=== PATIENT | male | born 2000 | race Caucasian/White ===

== ENCOUNTER 2019-08-11 11:34 | Emergency (ER) | payer BC ==
--- NOTE | 2019-08-11 12:15 | ER ---
Nurse's Notes [facility] Name: Case Vargas Age: 19 yrs Sex: Male : 2000 Arrival Date: 08/11/2019 Time: 11:38 Bed 25 Private MD: Diagnosis: Hordeolum externum left upper eyelid Presentation: 08/10 11:47 Chief complaint: Patient states: Stye on L top eyelid since 2 days ago. Coronavirus ca1 screen: Proceed with normal triage. Patient denies a cough. Patient denies shortness of breath or difficulty breathing. Patient denies measured and/or subjective temperature greater than 100.4F prior to today's visit. Patient denies travel on a cruise ship or to a country the [facility] currently lists as an affected area. Patient denies contact with known and/or suspected case of COVID-19. Ebola Screen: Patient negative for fever greater than or equal to 101.5 degrees Fahrenheit, and additional compatible Ebola Virus Disease symptoms Patient denies exposure to infectious person. Patient denies travel to an Ebola-affected area in the 21 days before illness onset. No symptoms or risks identified at this time. Initial Sepsis Screen: Does the patient meet any 2 criteria? No. Patient's initial sepsis screen is negative. Does the patient have a suspected source of infection? No. Patient's initial sepsis screen is negative. Risk Assessment: Do you want to hurt yourself or someone else? Patient reports no desire to harm self or others. Onset of symptoms was August 11, 2019. 11:47 Method Of Arrival: Ambulatory ca1 11:47 Acuity: ALEX 5 ca1 Historical: - Allergies: 11:50 No Known Allergies; ca1 - Home Meds: 11:50 None [Active]; ca1 - PMHx: 11:50 None; ca1 - PSHx: 11:50 None; ca1 - Immunization history:: Adult Immunizations up to date. - Social history:: Smoking status: Patient denies any tobacco usage or history of. Screenin:05 Abuse screen: Denies threats or abuse. Denies injuries from another. Nutritional iw screening: No deficits noted. Tuberculosis screening: No symptoms or risk factors identified. Fall Risk None identified. Assessment: 12:04 General: Appears in no apparent distress. Behavior is calm, cooperative. Pain: iw Complains of pain in left eye. Neuro: Level of Consciousness is awake, alert, obeys commands, Oriented to person, place, time, situation, Moves all extremities. Full function. Cardiovascular: Patient's skin is warm and dry. Respiratory: Respiratory effort is even, unlabored. EENT: Lid(s) w/ stye noted inner aspect of conjunctiva of left eye and left inner canthus. Derm: Skin is intact, is healthy with good turgor. Musculoskeletal: Range of motion: intact in all extremities. Vital Signs: 11:47 BP 116 / 64; Pulse 71; Resp 15 S; Temp 97.5(TE); Pulse Ox 98% on R/A; Weight 85.28 kg ca1 (R); Height 5 ft. 9 in. (175.26 cm) (R); Pain 0/10; 11:47 Body Mass Index 27.76 (85.28 kg, 175.26 cm) ca1 ED Course: 11:38 Patient arrived in ED. ag5 11:49 Triage completed. ca1 11:50 Arm band placed on right wrist. ca1 11:59 Suzan Keyes FNP-C is PHCP. kb 11:59 Altagracia Rosenbaum MD is Attending Physician. kb 12:04 Luba Vargas, RN is Primary Nurse. iw 12:04 Patient has correct armband on for positive identification. iw 12:47 No provider procedures requiring assistance completed. Patient did not have IV access iw during this emergency room visit. Administered Medications: No medications were administered Outcome: 12:15 Discharge ordered by MD. kb 12:47 Discharged to home ambulatory. iw 12:47 Condition: good 12:47 Discharge instructions given to patient, Instructed on discharge instructions, follow up and referral plans. Demonstrated understanding of instructions, follow-up care. 12:48 Patient left the ED. iw Signatures: Suzan Keyes FNP-C FNP-Luba No, RN RN iw Marilee Camp RN RN ca1 SangeetaKen ag5
--- NOTE | 2019-08-11 12:15 | EDPHYS ---
Physician Documentation [facility] Name: Case Vargas Age: 19 yrs Sex: Male : 2000 Arrival Date: 08/11/2019 Time: 11:38 Bed 25 Private MD: ED Physician Altagracia Rosenbaum HPI: 08/10 12:21 This 19 yrs old Male presents to ER via Ambulatory with complaints of Eye Problem. kb 12:21 The patient is experiencing redness, The patient sustained Unknown. to the left eye, kb caused by an unknown mechanism. Onset: The symptoms/episode began/occurred 2 day(s) ago. Duration: the symptoms are continuous. Aggravated by nothing. Alleviated by nothing. Associated signs and symptoms: Pertinent positives: None. Patient does not utilize any form of vision correction. Severity of symptoms: At their worst the symptoms were mild in the emergency department the symptoms are unchanged. The patient has not experienced similar symptoms in the past. The patient has not recently seen a physician. Historical: - Allergies: 11:50 No Known Allergies; ca1 - Home Meds: 11:50 None [Active]; ca1 - PMHx: 11:50 None; ca1 - PSHx: 11:50 None; ca1 - Immunization history:: Adult Immunizations up to date. - Social history:: Smoking status: Patient denies any tobacco usage or history of. ROS: 12:20 Constitutional: Negative for fever, chills, and weight loss, Cardiovascular: Negative kb for chest pain, palpitations, and edema, Respiratory: Negative for shortness of breath, cough, wheezing, and pleuritic chest pain, Abdomen/GI: Negative for abdominal pain, nausea, vomiting, diarrhea, and constipation, Back: Negative for injury and pain, MS/Extremity: Negative for injury and deformity, Skin: Negative for injury, rash, and discoloration, Neuro: Negative for headache, weakness, numbness, tingling, and seizure. 12:20 Eyes: Positive for itching, redness, swelling, of the left upper eyelid. Exam: 12:22 Constitutional: This is a well developed, well nourished patient who is awake, alert, kb and in no acute distress. Head/Face: Normocephalic, atraumatic. Chest/axilla: Normal chest wall appearance and motion. Nontender with no deformity. No lesions are appreciated. Cardiovascular: Regular rate and rhythm with a normal S1 and S2. No gallops, murmurs, or rubs. Normal PMI, no JVD. No pulse deficits. Respiratory: Lungs have equal breath sounds bilaterally, clear to auscultation and percussion. No rales, rhonchi or wheezes noted. No increased work of breathing, no retractions or nasal flaring. Abdomen/GI: Soft, non-tender, with normal bowel sounds. No distension or tympany. No guarding or rebound. No evidence of tenderness throughout. Skin: Warm, dry with normal turgor. Normal color with no rashes, no lesions, and no evidence of cellulitis. MS/ Extremity: Pulses equal, no cyanosis. Neurovascular intact. Full, normal range of motion. Neuro: Awake and alert, GCS 15, oriented to person, place, time, and situation. Cranial nerves II-XII grossly intact. Motor strength 5/5 in all extremities. Sensory grossly intact. Cerebellar exam normal. Normal gait. 12:22 Eyes: Lids and lashes: stye, on the left lid. Vital Signs: 11:47 BP 116 / 64; Pulse 71; Resp 15 S; Temp 97.5(TE); Pulse Ox 98% on R/A; Weight 85.28 kg ca1 (R); Height 5 ft. 9 in. (175.26 cm) (R); Pain 0/10; 11:47 Body Mass Index 27.76 (85.28 kg, 175.26 cm) ca1 MDM: 11:59 Patient medically screened. kb 12:20 Data reviewed: vital signs. Data interpreted: Pulse oximetry: on room air is 98 %. kb Interpretation: normal. Counseling: I had a detailed discussion with the patient and/or guardian regarding: the historical points, exam findings, and any diagnostic results supporting the discharge/admit diagnosis, the need for outpatient follow up, an opthalmologist, to return to the emergency department if symptoms worsen or persist or if there are any questions or concerns that arise at home. Administered Medications: No medications were administered Disposition: 18:49 Co-signature as Attending Physician, Altagracia Rosenbaum MD. ma2 Disposition: 08/11/19 12:15 Discharged to Home. Impression: Hordeolum externum left upper eyelid. - Condition is Stable. - Discharge Instructions: Stye. - Medication Reconciliation Form, Thank You Letter, Antibiotic Education, Prescription Opioid Use, Work release form form. - Follow up: Emergency Department; When: As needed; Reason: Worsening of condition. Follow up: Private Physician; When: 2 - 3 days; Reason: Recheck today's complaints, Continuance of care, Re-evaluation by your physician. Signatures: Suzan Keyes, LUPILLO-C LARRY CAR OPERATOR-Luba No RN RN Altagracia Rosenbaum MD MD ma2 Marilee Camp RN RN ca1 Corrections: (The following items were deleted from the chart) 12:48 12:15 08/11/2019 12:15 Discharged to Home. Impression: Hordeolum externum left upper iw eyelid. Condition is Stable. Discharge Instructions: Stye. Forms are Medication Reconciliation Form, Thank You Letter, Antibiotic Education, Prescription Opioid Use. Follow up: Emergency Department; When: As needed; Reason: Worsening of condition. Follow up: Private Physician; When: 2 - 3 days; Reason: Recheck today's complaints, Continuance of care, Re-evaluation by your physician. kb
[2019-08-11 12:54] VITALS: BP 116/64; TEMP 97.5; O2SAT 98
== END 2019-08-11 12:48 | disposition home or self-care (01) ==
LOC: ER 11:34
DX: H00.014 Hordeolum externum left upper eyelid (principal)
CPT/HCPCS: 99281

== ENCOUNTER 2020-12-25 19:40 | Emergency (ER) | payer BC, SELFPAY ==
--- NOTE | 2020-12-25 21:18 | RAD REPORT ---
EXAM DESCRIPTION: RAD - Chest Pa And Lat (2 Views) - 12/25/2020 9:13 pm CLINICAL HISTORY: CHEST PAIN Chest pain. COMPARISON: No comparisons FINDINGS: The lungs are clear. The heart is normal in size. No displaced fractures. IMPRESSION: No acute or concerning finding suspected.
[2020-12-25 22:42] LABS: Absolute Lymphocytes (CBC) 2.4 K/uL (0.7-4.9); Basophils % 0.6 % (0-1.3); Hematocrit 37.9 % (39.6-49.0); Lymphocytes % 29.1 % (15.3-44.8); MPV 8.6 fL (7.6-11.3); RBC Red Blood Cell Count 4.24 M/uL (4.33-5.43)
[2020-12-25 22:56] LABS: ALT/SGPT 22 U/L (12-78); AST/SGOT 13 U/L (15-37); Alkaline Phosphatase 60 U/L (45-117); BUN Blood Urea Nitrogen 11 mg/dL (7-18); Bicarbonate 29 mmol/L (21-32); Bilirubin Direct 0.3 mg/dL (0-0.2); Bilirubin Total 1.5 mg/dL (0.2-1.0); Glucose Level 87 mg/dL (74-106); Magnesium 2.2 mg/dL (1.8-2.4); NT PRO-BNP 20 pg/mL (<125); Potassium 3.7 mmol/L (3.5-5.1); Protein, Total 7.3 g/dL (6.4-8.2); Sodium Level 139 mmol/L (136-145); Troponin (Emerg Dept Use Only) < 0.02 ng/mL (0.0-0.045)
[2020-12-25 23:17] LABS: Barbiturates NEGATIVE (NEGATIVE); Benzodiazepines NEGATIVE (NEGATIVE); Cocaine NEGATIVE (NEGATIVE); METHAMPHETAM NEGATIVE (NEGATIVE); Methadone NEGATIVE (NEGATIVE); Opiates NEGATIVE (NEGATIVE); Phencyclidine NEGATIVE (NEGATIVE); THC Cannibis NEGATIVE (NEGATIVE)
[2020-12-25 23:28] LABS: Protime INR 0.98
--- NOTE | 2020-12-26 00:37 | EDPHYS ---
Physician Documentation [facility] Name: Case Vargas Age: 20 yrs Sex: Male : 2000 Arrival Date: 12/25/2020 Time: 19:41 Bed 17 Private MD: ED Physician Kevin Mcbride HPI: 12/25 21:00 This 20 yrs old Male presents to ER via Ambulatory with complaints of Chest cp Pain. 21:00 The patient or guardian reports chest pain that is located primarily in the anterior cp chest wall, left. The pain does not radiate. The chest pain is described as aching. Historical: - Allergies: 20:10 No Known Allergies; df1 - Home Meds: 20:10 lithium carbonate 300 mg Oral tab 1 tab 3 times per day [Active]; df1 - PMHx: 20:11 Bipolar disorder; df1 - PSHx: 20:11 None; df1 - Immunization history:: Adult Immunizations up to date, Client reports receiving the 2nd dose of the Covid vaccine. - Social history:: Smoking status: Patient denies any tobacco usage or history of. ROS: 21:01 Constitutional: Negative for body aches, chills, fever, poor PO intake. cp 21:01 Cardiovascular: Positive for chest pain, of the left side of chest. 21:01 Respiratory: Negative for cough, shortness of breath, wheezing. 21:01 Abdomen/GI: Negative for abdominal pain, nausea, vomiting, and diarrhea. 12/26 00:38 Eyes: Negative for injury, pain, redness, and discharge. pkl Exam: 12/25 21:01 Head/Face: Normocephalic, atraumatic. cp Constitutional: The patient appears in no acute distress, alert, awake, comfortable, non-diaphoretic, non-toxic, well developed, well nourished. Chest/axilla: Inspection: normal, Palpation: is normal, no crepitus, no tenderness. Cardiovascular: Rate: normal, Rhythm: regular. ECG was reviewed by the Attending Physician. Respiratory: the patient does not display signs of respiratory distress, Respirations: normal, no use of accessory muscles, no retractions, labored breathing, is not present, Breath sounds: are clear throughout, no decreased breath sounds, no stridor, no wheezing. Abdomen/GI: Exam negative for discomfort, distension, guarding, Inspection: abdomen appears normal. Vital Signs: 20:08 BP 137 / 81; Pulse 83; Resp 18; Temp 98.5; Pulse Ox 100% on R/A; Weight 81.19 kg; df1 Height 5 ft. 9 in. (175.26 cm); Pain 4/10; 21:42 BP 116 / 72; Pulse 95; Resp 20; cs9 22:04 BP 131 / 75; Pulse 72; Resp 20; Temp 98.6(O); Pulse Ox 100% on R/A; Pain 2/10; kc4 23:11 BP 124 / 75; Pulse 68; Resp 20; Temp 98.6(O); Pulse Ox 100% on R/A; Pain 0/10; kc4 12/26 00:50 BP 121 / 76; Pulse 70; Resp 18; Pulse Ox 98% on R/A; Pain 0/10; kc4 12/25 20:08 Body Mass Index 26.43 (81.19 kg, 175.26 cm) df1 MDM: 12/25 21:37 Patient medically screened. pkl 12/26 00:33 Data reviewed: vital signs, nurses notes, lab test result(s), EKG, radiologic studies, pkl plain films. ED course: Patient feeling better. Discussed lab, EKG and CXR results with patient. Advised to follow up with PCP in 2 to 3 days. To return if necessary. Patient understood instructions. 12/25 21:03 Order name: Basic Metabolic Panel; Complete Time: 23:07 cp 12/25 21:03 Order name: CBC with Diff; Complete Time: 22:52 cp 12/25 21:03 Order name: LFT's; Complete Time: 23:07 cp 12/25 21:03 Order name: Magnesium; Complete Time: 23:07 cp 12/25 21:03 Order name: NT PRO-BNP; Complete Time: 23:07 cp 12/25 20:37 Order name: XRAY Chest Pa And Lat (2 Views); Complete Time: 21:39 df1 12/25 20:57 Order name: EKG - Nurse/Tech; Complete Time: 20:57 df1 12/25 21:03 Order name: Troponin (emerg Dept Use Only); Complete Time: 23:07 cp 12/25 21:40 Order name: D-Dimer; Complete Time: 23:55 pkl 12/25 21:40 Order name: UDS; Complete Time: 23:19 pkl 12/25 21:45 Order name: [place]; Complete Time: 00:23 pkl 12/25 22:30 Order name: Protime (+INR); Complete Time: 23:55 EDMS 12/25 21:03 Order name: Cardiac monitoring; Complete Time: 23:11 cp 12/25 21:03 Order name: IV Saline Lock; Complete Time: 23:11 cp 12/25 21:03 Order name: Labs collected and sent; Complete Time: 23:11 cp 12/25 21:03 Order name: O2 Per Protocol; Complete Time: 23:11 cp 12/25 21:03 Order name: O2 Sat Monitoring; Complete Time: 23:11 cp EC/27 21:01 Rate is 78 beats/min. Rhythm is regular. OK interval is normal. QRS interval is normal. cp QT interval is normal. T waves are Inverted in lead aVR. Interpreted by me. Reviewed by me. Administered Medications: 12/26 00:25 Drug: GI Cocktail without - (Maalox Suspension 30 ml, Lidocaine Liquid 2 % 15 kc4 ml) Route: PO; 00:52 Follow up: Response: No adverse reaction kc4 Disposition: 00:33 Co-signature as Attending Physician, Kevin Mcbride MD. pkl Disposition Summary: 12/26/20 00:36 Discharge Ordered Location: Home pkl Problem: new pkl Symptoms: have improved pkl Condition: Stable pkl Diagnosis - Chest pain pkl Followup: pkl - With: Private Physician - When: 2 - 3 days - Reason: Re-evaluation by your physician Forms: - Medication Reconciliation Form pkl - Thank You Letter pkl - Antibiotic Education pkl - Prescription Opioid Use pkl Signatures: Dispatcher [employer] EDKevin Woods MD MD pkl Chon Arellano PA PA cp Chuman, Kourtney kc4 Siri Gallardo df1 Corrections: (The following items were deleted from the chart) 12/25 22:29 21:04 PROTIME (+INR)+COAG.LAB.BRZ ordered. EDMS EDMS
--- NOTE | 2020-12-26 00:37 | ER ---
Nurse's Notes [facility] Name: Case Vargas Age: 20 yrs Sex: Male : 2000 Arrival Date: 12/25/2020 Time: 19:41 Bed 17 Private MD: Diagnosis: Chest pain Presentation: 12/25 20:08 Chief complaint: Patient states: chest pain since 1000 today mid sternal. Pain is df1 reproducible with pressure and movement. Coronavirus screen: Vaccine status: Patient reports receiving the 2nd dose of the covid vaccine. At this time, the client does not indicate any symptoms associated with coronavirus-19. Ebola Screen: Patient negative for fever greater than or equal to 101.5 degrees Fahrenheit, and additional compatible Ebola Virus Disease symptoms Patient denies exposure to infectious person. Patient denies travel to an Ebola-affected area in the 21 days before illness onset. Initial Sepsis Screen: Does the patient meet any 2 criteria? No. Patient's initial sepsis screen is negative. Does the patient have a suspected source of infection? No. Patient's initial sepsis screen is negative. Risk Assessment: Do you want to hurt yourself or someone else? Patient reports no desire to harm self or others. Onset of symptoms was December 25, 2020 at 10:00. 20:08 Method Of Arrival: Ambulatory df1 20:08 Acuity: ALEX 3 df1 20:11 Note Pt states chest pain since this morning. Also states 30 days late for [place] df1 level. Triage Assessment: 12/26 00:50 General: Appears in no apparent distress. well groomed, Behavior is calm, cooperative, kc4 appropriate for age. Pain: Denies pain. Historical: - Allergies: 12/25 20:10 No Known Allergies; df1 - Home Meds: 20:10 lithium carbonate 300 mg Oral tab 1 tab 3 times per day [Active]; df1 - PMHx: 20:11 Bipolar disorder; df1 - PSHx: 20:11 None; df1 - Immunization history:: Adult Immunizations up to date, Client reports receiving the 2nd dose of the Covid vaccine. - Social history:: Smoking status: Patient denies any tobacco usage or history of. Screenin:09 Abuse screen: Denies threats or abuse. Denies injuries from another. Nutritional kc4 screening: No deficits noted. On no prescribed diet Difficulty chewing/swallowing? No. Tuberculosis screening: No symptoms or risk factors identified. Never had TB. Possible symptoms: None Risk factors: None. Fall Risk None identified. No fall in past 12 months (0 pts). No secondary diagnosis (0 pts). IV access (20 points). Ambulatory Aid- None/Bed Rest/Nurse Assist (0 pts). Gait- Normal/Bed Rest/Wheelchair (0 pts) Mental Status- Oriented to own ability (0 pts). [place] Fall Scale indicates No Risk (0-24 pts). Assessment: 22:39 Also complains of no other symptoms. Pain: Complains of pain in chest Pain does not kc4 radiate. Pain currently is 5 out of 10 on a pain scale. at worst was 9 out of 10 on a pain scale. level that patient reports is acceptable is 2 out of 10 on a pain scale. Quality of pain is described as sharp, Pain began gradually, Is intermittent, Alleviated by medications. Cardiovascular: Reports chest pain, Denies diaphoresis, fatigue, lightheadedness, nausea, palpitations, shortness of breath, syncope, vomiting, Heart tones present Capillary refill < 3 seconds Pulses are all present. Rhythm is regular. Respiratory: No deficits noted. GI: No deficits noted. No signs and/or symptoms were reported involving the gastrointestinal system. : No deficits noted. No signs and/or symptoms were reported regarding the genitourinary system. EENT: No deficits noted. No signs and/or symptoms were reported regarding the EENT system. Derm: No deficits noted. No signs and/or symptoms reported regarding the dermatologic system. Vital Signs: 20:08 BP 137 / 81; Pulse 83; Resp 18; Temp 98.5; Pulse Ox 100% on R/A; Weight 81.19 kg; df1 Height 5 ft. 9 in. (175.26 cm); Pain 4/10; 21:42 BP 116 / 72; Pulse 95; Resp 20; cs9 22:04 BP 131 / 75; Pulse 72; Resp 20; Temp 98.6(O); Pulse Ox 100% on R/A; Pain 2/10; kc4 23:11 BP 124 / 75; Pulse 68; Resp 20; Temp 98.6(O); Pulse Ox 100% on R/A; Pain 0/10; kc4 12/26 00:50 BP 121 / 76; Pulse 70; Resp 18; Pulse Ox 98% on R/A; Pain 0/10; kc4 12/25 20:08 Body Mass Index 26.43 (81.19 kg, 175.26 cm) df1 Vitals: 12/25 22:50 Cardiac Rhythm Assessment Regular Sinus rhythm. kc4 ED Course: 19:41 Patient arrived in ED. cf2 20:10 Triage completed. df1 21:13 XRAY Chest Pa And Lat (2 Views) In Process Unspecified. EDMS 21:37 Kevin Mcbride MD is Attending Physician. pkl 22:05 Inserted saline lock: 18 gauge in right antecubital area, using aseptic technique. kc4 Blood collected. 22:33 Rosanna Hough is Primary Nurse. kc4 22:33 Patient has correct armband on for positive identification. Placed in gown. Bed in low kc4 position. Call light in reach. Side rails up X 1. hall monitor on. Pulse ox on. NIBP on. 22:33 No provider procedures requiring assistance completed. kc4 22:41 Protime (+INR) Sent. kc4 22:41 [place] Sent. kc4 22:41 D-Dimer Sent. kc4 22:41 UDS Sent. kc4 23:09 No apparent distress. Resting quietly. kc4 23:10 UDS Sent. kc4 12/26 00:50 IV discontinued, intact, bleeding controlled, No redness/swelling at site. Pressure kc4 dressing applied. Patient maintains SpO2 saturation greater than 95% on room air. 00:52 Arm band placed on right wrist. kc4 Administered Medications: 00:25 Drug: GI Cocktail without - (Maalox Suspension 30 ml, Lidocaine Liquid 2 % 15 kc4 ml) Route: PO; 00:52 Follow up: Response: No adverse reaction kc4 Output: 12/25 22:50 Urine: 500ml (Voided); Total: 500ml. kc4 Outcome: 12/26 00:36 Discharge ordered by . pkl 00:51 Discharged to home ambulatory. kc4 00:51 Condition: stable 00:51 Discharge instructions given to patient, Instructed on discharge instructions, follow up and referral plans. Demonstrated understanding of instructions, follow-up care, medications. 00:52 Patient left the ED. kc4 Signatures: Dispatcher [employer] EDAZ Kevin Mcbride MD MD pkl Alessia Pérez cf2 Rosanna Hough kc4 Siri Gallardo df1 Bertin, Natalie cs9
[2020-12-26] MEDS ORDERED: MAGNES/ALUMIN/SIMET 30ML UCUP ONE (00:42)
[2020-12-26] MEDS ORDERED: LIDOCAINE VISCOUS 2% SOLN 15 ML UDC ONE (00:42)
[2020-12-26 01:21] VITALS: TEMP 98.6
[2020-12-26 01:24] VITALS: BP 121/76; O2SAT 98
--- NOTE | 2020-12-28 14:25 | EKG ---
Test Date: 2020-12-25 Test Time: 20:53:35 [place]: MEASUREMENT RESULTS: Intervals: Rate: 78 KS: 144 QRSD: 92 QT: 372 QTc: 424 Faith: P: 69 KS: 144 QRS: 73 T: 48 INTERPRETIVE STATEMENTS: Normal sinus rhythm with sinus arrhythmia Normal ECG No previous ECG available for comparison Electronically Signed On 12-28-20 14:22:07 CDT by Jax Curtis
== END 2020-12-26 00:52 | disposition home or self-care (01) ==
LOC: ER 19:40
DX: R07.89 Other chest pain (principal); F31.9 Bipolar disorder, unspecified
CPT/HCPCS: 36415; 71046; 80048; 80076; 80178; 80307; 83735; 83880; 84484; 85025; 85379; 85610; 93005; 99285

== ENCOUNTER 2022-02-01 13:57 | Emergency (ER) | payer OTHER ==
--- OUTSIDE RECORDS SUMMARY | 2022-02-01 14:02 | XMS REPORT | Continuity of Care Document ---
:2000 Author Organization [facility] t Address [address] [place] [address] [address]. [address] [place] [address] Care Team Providers Name Role Phone Pcp, Patient Does Not Have A Primary Care Physician [id number] ILIA GRIGGS Attending Clinician Unavailable Ilia Griggs MD Attending Clinician Doctor Unassigned, [place] Attending Clinician Unavailable JONATAN DEAN Attending Clinician Unavailable PEREZ NASSAR Attending Clinician Unavailable JOHN SUN Attending Clinician Unavailable Payers Payer Name Policy Type Policy Number Effective Date Expiration Date S [facility] [id number] 2020 00:00:00 Problems Condition Condition Condition Status Onset Resolution Last Treating Co mments Source Name Details Category Date Date Treatment Clinician Date No known No known Disease Unive rs active active ity of problems problems [facility] Allergies, Adverse Reactions, Alerts Allergy Allergy Status Severity Reaction(s) Onset Inactive Treating Comm ents Source Name Type Date Date Clinician NO KNOWN Drug Active Univers ALLERGIE Class ity of S [facility] Social History Social Habit Start Date Stop Date Quantity Comments Source History of Current smoker University of tobacco use [facility] Exposure to 2021-12-27 2022-01-06 Not sure University of SARS-CoV-2 00:00:00 13:38:00 [facility] [place] Tobacco use and 2022-01-06 2022-01-06 Smokeless tobacco Un iversity of exposure 00:00:00 00:00:00 non-user [facility] Tobacco Comment 2022-01-06 2022-01-06 vape Universit y of 00:00:00 00:00:00 [facility] Sex Ass[birth year] At [birth year] Universit y of 00:00:00 00:00:00 [facility] Smoking Status Start Date Stop Date Source Ex-smoker 2022-01-06 00:00:00 2022-01-06 00:00:00 [facility] Medications Ordered Filled Start Stop Current Ordering Indication Dosage Frequency Signature Comments Components Source Medication Medication Date Date Medication? Clinician (SIG) Name Name lithium 2021-03 Yes TAKE 3 Univers carbonate 0-10 CAPSULES ity of 300 mg 00:00: BY MOUTH [place] capsule 00 EVERY DAY Medical WITH MEALS [facility] lithium 2021-03 Yes TAKE 3 Univers carbonate 0-10 CAPSULES ity of 300 mg 00:00: BY MOUTH [place] capsule 00 EVERY DAY Medical WITH MEALS Branch lithium 2021-03 Yes TAKE 3 Univers carbonate 0-10 CAPSULES ity of 300 mg 00:00: BY MOUTH [place] capsule 00 EVERY DAY Medical WITH MEALS Branch albuterol Yes [id number] 2{puff} Inhale 2 Univers 90 8-07 Puffs ity of mcg/actuati 00:00: every 6 [place] as on inhaler 00 (six) Medical hours as Branch needed for Wheezing, Shortness of Breath or Chest tightness. albuterol Yes [id number] 2{puff} Inhale 2 Univers 90 8-07 Puffs ity of mcg/actuati 00:00: every 6 [place] as on inhaler 00 (six) Medical hours as Branch needed for Wheezing, Shortness of Breath or Chest tightness. albuterol Yes [id number] 2{puff} Inhale 2 Univers 90 8-07 Puffs ity of mcg/actuati 00:00: every 6 [place] as on inhaler 00 (six) Medical hours as Branch needed for Wheezing, Shortness of Breath or Chest tightness. albuterol Yes [id number] 2{puff} Inhale 2 Univers 90 8-07 Puffs ity of mcg/actuati 00:00: every 6 [place] as on inhaler 00 (six) Medical hours as Branch needed for Wheezing, Shortness of Breath or Chest tightness. Vital Signs Vital Name Observation Time Observation Value Comments Source Systolic blood 2022-01-06 19:39:00 115 mm[Hg] Univer sity of pressure [facility] Diastolic blood 2022-01-06 19:39:00 66 mm[Hg] Unive rsity of pressure [facility] Heart rate 2022-01-06 19:39:00 71 /min [facility] Body temperature 2022-01-06 19:39:00 36.89 Soraya Univ ersity of [facility] Body height 2022-01-06 19:39:00 175.3 cm [facility] Body weight 2022-01-06 19:39:00 82.101 kg [facility] BMI 2022-01-06 19:39:00 26.73 kg/m2 [facility] Oxygen saturation in 2022-01-06 19:39:00 98 /min [facility] Arterial blood by [facility] Pulse oximetry [place] Procedures Procedure Date / Time Performed Performing Clinician Sour e CONSENT/REFUSAL FOR 2022-01-06 19:30:11 Doctor Unassaurea, Marianela Un [facility] DIAGNOSIS AND Name [facility] TREATMENT Encounters Start End Encounter Admission Attending Care Care Encounter Source Date/Time Date/Time Type Type Clinicians Facility Department ID 2022-01-06 2022-01-06 Office Anson [facility] [id number] Univers 13:15:00 13:45:00 Visit [facility] [id number] it y of [place] [facility] [id number] Riaz as CENTER - [id number] Med ical [facility] 204 Branch 2022-01-06 2022-01-06 Outpatient R ANSON [facility] [id number] Univers 13:15:00 13:15:00 ILIA nelson [facility] 2022-01-06 2022-01-06 Orders Doctor ROSALES [id number] Univers 00:00:00 00:00:00 Only UnassGRACE villar [id number] ity of [place] [facility] [id number] Riaz as [id number] [facility] 009 Branch 2020-10-05 2020-10-05 Outpatient R JERMAINE [facility] [id number] Univers 19:00:00 19:00:00 JONATAN henao f [facility] 2020-09-08 2020-09-08 [facility] [id number] Univers 16:40:00 16:40:00 PEREZ toy [facility] 2019-10-03 2019-10-03 Outpatient R [facility] [id number] Univers 15:20:00 15:20:00 [facility] 2019-09-12 2019-09-12 [facility] [id number] Univers 14:20:00 14:20:00 JOHN [facility] Results This patient has no known results.
[2022-02-01 14:32] LABS: Urine Blood Negative (Negative); Urine Glucose Negative (Negative); Urine Protein Negative (Negative); Urine Specific Gravity 1.025 (1.005-1.030); Urine pH 5.5 (5.0-7.0)
[2022-02-01 14:41] LABS: Absolute Lymphocytes (CBC) 2.3 K/uL (0.7-4.9); Hematocrit 40.5 % (39.6-49.0); Lymphocytes % 27.9 % (15.3-44.8); MCV 87.3 fL (80-100); MPV 8.4 fL (7.6-11.3); RBC Red Blood Cell Count 4.64 M/uL (4.33-5.43)
[2022-02-01 14:58] LABS: Bilirubin Total 1.1 mg/dL (0.2-1.0); Protein, Total 7.6 g/dL (6.4-8.2)
--- NOTE | 2022-02-01 16:14 | RAD REPORT ---
EXAM DESCRIPTION: CT - Abdomen Pelvis W Contrast - 02/01/2022 3:57 pm CLINICAL HISTORY: abdominal pain, bloody stools COMPARISON: No comparisons TECHNIQUE: Biphasic, helical CT imaging of the abdomen and pelvis was performed following 100 ml non -ionic IV contrast. Oral contrast: No. All CT scans are performed using dose optimization technique as appropriate and may include automated exposure control or mA/KV adjustment according to patient size. FINDINGS: No suspicious findings in the lung bases. The liver, spleen, and pancreas show no suspicious findings. Gallbladder and biliary tree are also wi thout suspicious finding. Symmetric renal function is seen with no hydronephrosis or suspicious renal mass. No pyelonephritis o r acute parenchymal process. No bladder abnormalities. No adrenal abnormalities. No stomach or small bowel abnormality. No appendicitis findings seen. A few scattered small mesenteri c lymph nodes are present. From cecum through sigmoid colon there is no wall thickening or edema evid ent. Left-sided colon is mostly decompressed. Cho of the rectum are mildly prominent but difficult to evaluate in the absence of any intraluminal content. Mild mucosal level inflammatory bowel process cannot be excluded. No free air, free fluid or inflammatory stranding. No hernia, mass or bulky lymphadenopathy. No suspicious bony findings. IMPRESSION: Contrast enhanced CT abdomen and pelvis showing no acute or emergent finding. A few small mesenteric nonspecific lymph nodes are seen. No bulky lymphadenopathy or mass. Left side colon is mostly decompressed. A mucosal level inflammatory process could be occult in this CT examination.
--- NOTE | 2022-02-01 16:26 | ER ---
Nurse's Notes [facility] Name: Case Vargas Age: 21 yrs Sex: Male : 2000 Arrival Date: 02/01/2022 Time: 14:03 Bed 23 Private MD: Diagnosis: Abdominal pain, unspecified Presentation: 02/01 14:15 Chief complaint: Patient states: Blood/mucus in stool X 2 days. 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 Reports recent strep - been on amoxicillin. Denies abdominal pain. Discomfort eating or drinking. Coronavirus screen: At this time, the client does not indicate any symptoms associated with coronavirus-19. Ebola Screen: No symptoms or risks identified at this time. Initial Sepsis Screen: Does the patient meet any 2 criteria? No. Patient's initial sepsis screen is negative. Does the patient have a suspected source of infection? No. Patient's initial sepsis screen is negative. Risk Assessment: Do you want to hurt yourself or someone else? Patient reports no desire to harm self or others. Onset of symptoms was February 01, 2022. 14:15 Method Of Arrival: Ambulatory ld1 14:15 Acuity: ALEX 3 ld1 Triage Assessment: 14:17 General: Appears in no apparent distress. comfortable, Behavior is calm, cooperative, ld1 appropriate for age. Pain: Denies pain. EENT: No signs and/or symptoms were reported regarding the EENT system. Neuro: Level of Consciousness is awake, alert, obeys commands, Oriented to person, place, time, situation. Cardiovascular: Capillary refill < 3 seconds Patient's skin is warm and dry. Respiratory: Airway is patent Respiratory effort is even, unlabored, Respiratory pattern is regular, symmetrical. GI: Abdomen is flat, non-distended, Reports diarrhea, nausea, vomiting. : No signs and/or symptoms were reported regarding the genitourinary system. Derm: No signs and/or symptoms reported regarding the dermatologic system. Musculoskeletal: No signs and/or symptoms reported regarding the musculoskeletal system. Historical: - Allergies: 14:15 No Known Allergies; ld1 - PMHx: 14:15 Bipolar disorder; ld1 - PSHx: 14:15 None; ld1 - Immunization history:: Adult Immunizations up to date, Client reports receiving the 2nd dose of the Covid vaccine. - Social history:: Smoking status: Patient denies any tobacco usage or history of. Patient/guardian denies using alcohol. Screenin:27 Abuse screen: Denies threats or abuse. Denies injuries from another. Nutritional hb screening: No deficits noted. Tuberculosis screening: No symptoms or risk factors identified. Fall Risk None identified. Assessment: 14:27 General: See triage assessment. hb 15:32 Reassessment: Patient appears in no apparent distress at this time. Patient and/or hb family updated on plan of care and expected duration. Pain level reassessed. Patient is alert, oriented x 3, equal unlabored respirations, skin warm/dry/pink. 16:39 Reassessment: Patient appears in no apparent distress at this time. Patient and/or hb family updated on plan of care and expected duration. Pain level reassessed. Patient is alert, oriented x 3, equal unlabored respirations, skin warm/dry/pink. Vital Signs: 14:15 BP 134 / 69; Pulse 85; Resp 18; Temp 98.6(TE); Pulse Ox 100% on R/A; Weight 83.91 kg; ld1 Height 5 ft. 9 in. (175.26 cm); Pain 0/10; 16:39 BP 124 / 76; Pulse 82; Resp 15; Pulse Ox 99% on R/A; hb 14:15 Body Mass Index 27.32 (83.91 kg, 175.26 cm) ld1 ED Course: 14:03 Patient arrived in ED. rg4 14:09 [facility] 14:09 Chon Pabon MD is Attending Physician. [facility] 14:17 Triage completed. ld1 14:17 Arm band placed on right wrist. ld1 14:25 Inserted saline lock: 20 gauge in right antecubital area, using aseptic technique. ld1 Blood collected. 14:27 Nano Gardner, RN is Primary Nurse. hb 14:27 Patient has correct armband on for positive identification. hb 15:59 CT Abd/Pelvis - IV Contrast Only In Process Unspecified. EDMS 16:39 No provider procedures requiring assistance completed. IV discontinued, intact, hb bleeding controlled, No redness/swelling at site. Administered Medications: No medications were administered Medication: 14:28 VIS not applicable for this client. hb Outcome: 16:26 Discharge ordered by MD. paris 16:39 Discharged to home ambulatory. 16:39 Condition: stable 16:39 Discharge instructions given to patient, Instructed on discharge instructions, follow up and referral plans. medication usage, Demonstrated understanding of instructions, follow-up care, medications. 16:39 Patient left the ED. hb Signatures: Dispatcher [employer] EDMS Beto Davalos PA PA jmm Baxter, Heather, RN RN Rosalba Lazo rg4 Clara Leon RN RN ld1
--- NOTE | 2022-02-01 16:26 | EDPHYS ---
Physician Documentation [facility] Name: Case Vargas Age: 21 yrs Sex: Male : 2000 Arrival Date: 02/01/2022 Time: 14:03 Bed 23 Private MD: ZELALEM Physician Chon Pabon HPI: 02/01 14:19 This 21 yrs old Male presents to ER via Ambulatory with complaints of Mucus In Stool. jmm 14:19 The patient presents with abdominal pain. Onset: The symptoms/episode began/occurred jmm gradually. The symptoms do not radiate. This is a 21-year-old male with history of bipolar that presents emerged part with complaints of mild abdominal cramping. Patient noticed some mucus in his stool was concerned that there may be bleeding. Denies fever but states that he recently recovered from a strep infection. Denies vomiting.. Historical: - Allergies: 14:15 No Known Allergies; ld1 - PMHx: 14:15 Bipolar disorder; ld1 - PSHx: 14:15 None; ld1 - Immunization history:: Adult Immunizations up to date, Client reports receiving the 2nd dose of the Covid vaccine. - Social history:: Smoking status: Patient denies any tobacco usage or history of. Patient/guardian denies using alcohol. ROS: 14:19 Constitutional: Negative for fever, chills, and weight loss, Cardiovascular: Negative jmm for chest pain, palpitations, and edema, Respiratory: Negative for shortness of breath, cough, wheezing, and pleuritic chest pain. 14:19 Abdomen/GI: Positive for abdominal pain. 14:19 All other systems are negative. Exam: 14:19 Constitutional: This is a well developed, well nourished patient who is awake, alert, jmm and in no acute distress. Head/Face: atraumatic. Eyes: EOMI, no conjunctival erythema appreciated ENT: Moist Mucus Membranes Neck: Trachea midline, Supple Chest/axilla: Normal chest wall appearance and motion. Cardiovascular: Regular rate and rhythm. No edema appreciated Respiratory: Normal respirations, no respiratory distress appreciated Abdomen/GI: Non distended Back: Normal ROM Skin: General appearance color normal MS/ Extremity: Moves all extremities, no obvious deformities appreciated, no edema noted to the lower extremities Neuro: Awake and alert Psych: Behavior is normal, Mood is normal, Patient is cooperative and pleasant Vital Signs: 14:15 BP 134 / 69; Pulse 85; Resp 18; Temp 98.6(TE); Pulse Ox 100% on R/A; Weight 83.91 kg; ld1 Height 5 ft. 9 in. (175.26 cm); Pain 0/10; 16:39 BP 124 / 76; Pulse 82; Resp 15; Pulse Ox 99% on R/A; hb 14:15 Body Mass Index 27.32 (83.91 kg, 175.26 cm) ld1 MDM: 14:26 Patient medically screened. [facility] 16:25 Data reviewed: vital signs, nurses notes. Counseling: I had a detailed discussion with raina the patient and/or guardian regarding: the historical points, exam findings, and any diagnostic results supporting the discharge/admit diagnosis, lab results, radiology results, the need for outpatient follow up, to return to the emergency department if symptoms worsen or persist or if there are any questions or concerns that arise at home. 02/01 14:19 Order name: CBC with Diff; Complete Time: 14:45 ld1 02/01 14:19 Order name: CMP; Complete Time: 14:59 ld1 02/01 14:19 Order name: Lipase; Complete Time: 14:59 ld1 02/01 14:19 Order name: IV Saline Lock; Complete Time: 14:25 ld1 02/01 14:27 Order name: CT Abd/Pelvis - IV Contrast Only; Complete Time: 16:16 [facility] 02/01 14:33 Order name: Urine Dipstick-Ancillary; Complete Time: 14:39 EDCA 02/01 14:19 Order name: Labs collected and sent; Complete Time: 14:25 ld1 02/01 14:19 Order name: Urine Dipstick-Ancillary (obtain specimen); Complete Time: 14:30 ld1 Administered Medications: No medications were administered Disposition Summary: 02/01/22 16:26 Discharge Ordered Location: Home [facility] Condition: Stable [facility] Diagnosis - Abdominal pain, unspecified stefanie Followup: raina - With: Private Physician - When: 2 - 3 days - Reason: Recheck today's complaints, Continuance of care, Re-evaluation by your physician Discharge Instructions: - Discharge Summary Sheet raina - Abdominal Pain, Adult stefanie Forms: - Medication Reconciliation Form raina - Thank You Letter jmm - Antibiotic Education jmm - Prescription Opioid Use jmm Signatures: Dispatcher [employer] Beto Dinh PA PA jmm Dibbern, Lauren, RN RN ld1
[2022-02-01 17:02] VITALS: TEMP 98.6
[2022-02-01 17:12] VITALS: BP 124/76; O2SAT 99
== END 2022-02-01 16:39 | disposition home or self-care (01) ==
LOC: ER 13:57
DX: R10.9 Unspecified abdominal pain (principal)
CPT/HCPCS: 85025; 36415; 81003; 83690; 80053; 74177; 99283; Q9967

== ENCOUNTER 2022-12-15 22:49 | Emergency (ER) | payer OTHER, SELFPAY ==
--- OUTSIDE RECORDS SUMMARY | 2022-12-15 22:52 | XMS REPORT | Continuity of Care Document ---
:2000 Author Organization [facility] t Address [address] [place] [address] [place] [id number] Care Team Providers Name Role Phone Pcp, Patient Does Not Have A Primary Care Physician +[id number] Mk Attending Clinician Unavailable Ghazala Harris NP Attending Clinician Ilia Griggs MD Attending Clinician ILIA GRIGGS Attending Clinician Unavailable LORENA EDMONDSON Attending Clinician Unavailable LORENA EDMONDSON Attending Clinician Unavailable Chetan Huber Attending Clinician Doctor Unassigned, [place] Attending Clinician Unavailable 2, [facility] Attending Clinician Unavailable CHETAN MCCARTY Attending Clinician Unavailable Pob, [facility] Main Attending Clinician Unavailable GHAZALA HARRIS Attending Clinician Unavailable JONATAN DEAN Attending Clinician Unavailable PEREZ NASSAR Attending Clinician Unavailable JOHN SUN Attending Clinician Unavailable Mk Admitting Clinician Unavailable Payers Payer Name Policy Type Policy Number Effective Date Expiration Date S ource Problems Condition Condition Condition Status Onset Resolution Last Treating Co mments Source Name Details Category Date Date Treatment Clinician Date No known No known Disease Unive rs active active ity of problems problems [facility] [place] Allergies, Adverse Reactions, Alerts Allergy Allergy Status Severity Reaction(s) Onset Inactive Treating Comm ents Source Name Type Date Date Clinician NO KNOWN Drug Active Univers ALLERGIE Class ity of S [facility] Social History Social Habit Start Date Stop Date Quantity Comments Source Gender identity Universit y of [facility] Sexual orientation Univer sity of [facility] History of tobacco Current smoker Un iversity of use [facility] Exposure to 2022 2022-03-09 Not sure University SARS-CoV-2 (event) 00:00:00 13:34:00 [facility] History of Social 2022-02-06 2022-02-06 Univers ity of function 00:00:00 00:00:00 [facility] Tobacco use and 2020-09-08 2020-09-08 Smokeless Universit y of exposure 00:00:00 00:00:00 tobacco non-user [facility] dical [place] Tobacco Comment 2020-09-08 2020-09-08 vape Universit y of 00:00:00 00:00:00 [facility] [place] Sex Assigned At [birth year] Universit y of 00:00:00 00:00:00 [facility] [place] Smoking Status Start Date Stop Date Source Tobacco smoking [facility] xa consumption unknown Medical Bran ch Ex-smoker 2020-09-08 00:00:00 2020-09-08 [facility] [place] 00:00:[address] [facility] Medications Ordered Filled Start Stop Current Ordering Indication Dosage Frequency Signature Comments Components Source Medication Medication Date Date Medication? Clinician (SIG) Name Name metroNIDAZO 2021-03- No [id number] 500mg Take 1 Univers LE (FLAGYL) 04-12 tablet by it y of 500 mg 00:00: 05:59 mouth [place] tablet 00 :00 every 12 Medical (twelve) Branch hours for 3 days. metroNIDAZO 2021-03- No [id number] 500mg Take 1 Univers LE (FLAGYL) 04-12 tablet by it y of 500 mg 00:00: 05:59 mouth [place] tablet 00 :00 every 12 Medical (twelve) Branch hours for 3 days. metroNIDAZO 2021-03- No [id number] 500mg Take 1 Univers LE (FLAGYL) 04-12 tablet by it y of 500 mg 00:00: 05:59 mouth [place] tablet 00 :00 every 12 Medical (twelve) Branch hours for 3 days. amoxicillin 2021-03- No [id number] 1{tbl} Take 1 Univers -clavulanat 04-09 tablet by it y of e 875-125 00:00: 00:00 mouth in [place] mg per 00 :00 the Medical tablet morning Branch and 1 tablet in the evening. amoxicillin 2021-03- No [id number] 1{tbl} Take 1 Univers -clavulanat 04-09 tablet by it y of e 875-125 00:00: 00:00 mouth in [place] mg per 00 :00 the Medical tablet morning Branch and 1 tablet in the evening. amoxicillin 2021-03- No TAKE 1 Uni vers -clavulanat 03-19 TABLET BY it y of e 875-125 00:00: 00:00 MOUTH [place] mg per 00 :00 TWICE Medical tablet DAILY FOR Branch 10 DAYS amoxicillin 2021-03- No TAKE 1 Uni vers -clavulanat 03-19 TABLET BY it y of e 875-125 00:00: 00:00 MOUTH [place] mg per 00 :00 TWICE Medical tablet DAILY FOR Branch 10 DAYS lithium 2021-03 Yes TAKE 3 Univers carbonate [...] DAY Medical WITH MEALS Branch albuterol Yes [id number] 2{puff} Inhale 2 Univers 90 8-07 Puffs ity of mcg/actuati 00:00: every 6 [place] on inhaler 00 (six) Medical hours as Branch needed for Wheezing, Shortness of Breath or Chest tightness. albuterol Yes [id number] 2{puff} Inhale 2 Univers 90 8-07 Puffs ity of mcg/actuati 00:00: every 6 [place] on inhaler 00 (six) Medical hours as Branch needed for Wheezing, Shortness of Breath or Chest tightness. albuterol Yes [id number] 2{puff} Inhale 2 Univers 90 8-07 Puffs ity of mcg/actuati 00:00: every 6 [place] on inhaler 00 (six) Medical hours as Branch needed for Wheezing, Shortness of Breath or Chest tightness. albuterol Yes [id number] 2{puff} Inhale 2 [facility] 90 8-07 Puffs ity of mcg/actuati 00:00: every 6 [place] on inhaler 00 (six) Medical hours as Branch needed for Wheezing, Shortness of Breath or Chest tightness. albuterol 2021- No [id number] 2{puff} Inhale 2 [facility] 90 8-07 12-09 Puffs ity of mcg/actuati 00:00: 00:00 [place] 6 [place] inhaler 00 :00 (six) Medical hours as Branch needed for Wheezing, Shortness of Breath or Chest tightness. albuterol 2021- No [id number] 2{puff} Inhale 2 [place] [address] 8-07 12-09 Puffs ity of mcg/actuati 00:00: 00:00 [place] 6 [place] inhaler 00 :00 (six) Medical hours as Branch needed for Wheezing, Shortness of Breath or Chest tightness. albuterol 2021- No [id number] 2{puff} Inhale 2 [place] [address] 8-07 12-09 Puffs ity of mcg/actuati 00:00: 00:00 every 6 [place] inhaler 00 :00 (six) Medical hours as Branch needed for Wheezing, Shortness of Breath or Chest tightness. Klonopin 2 Klonopin 2 No 1 BID Klonopin 2 [place] mg tablet mg tablet mg tablet Family Take 1 Take 1 Take 1 Practic tablet tablet tablet e twice a day twice a day twice a by oral by oral day by route as route as oral route needed. needed. as needed. lithium lithium No 1 TID lithium [place] e carbonate carbonate carbonate Family 300 mg 300 mg 300 mg Practic tablet Take tablet Take tablet e 1 tablet 3 1 tablet 3 Take 1 times a day times a day tablet 3 by oral by oral times a route. route. day by oral route. Zoloft 100 Zoloft 100 No Zoloft 100 [place] mg tablet mg tablet mg tablet Family 1/2 tab PO 1/2 tab PO 1/2 tab PO Practic QHS x 1 QHS x 1 QHS x 1 e week, then week, then week, then 1 full tab 1 full tab 1 full tab PO QHS PO QHS PO QHS clonazepam clonazepam No 1 BID clonazepam [place] 2 mg 2 mg 2 mg Family disintegrat disintegrat disintegra Practic ing tablet ing tablet ting e Place 1 Place [address] 1 twice a day twice a day tablet by by twice a translingua translingua day by l route. l route. translingu al route. Vital Signs Vital Name Observation Time Observation Value Comments Source Height 2022-11-13 00:00:00 69 [in_i] [facility] BP Systolic 2022-11-13 00:00:00 121 mm[Hg] [facility] Body Weight 2022-11-13 00:00:00 174 [lb_av] [facility] BMI (Body Mass 2022-11-13 00:00:00 25.7 kg/m2 [facility] Family Index) Practice BP Diastolic 2022-11-13 00:00:00 69 mm[Hg] [facility] Systolic blood 2022-03-09 19:57:00 117 mm[Hg] Univer sity of [facility] Diastolic blood 2022-03-09 19:57:00 76 mm[Hg] Unive rsity of [facility] Heart rate 2022-03-09 19:57:00 65 /min Universi [facility] Body temperature 2022-03-09 19:57:00 36.67 Soraya [facility] [place] [facility] Respiratory rate 2022-03-09 19:57:00 18 /min [facility] Body height 2022-03-09 19:57:00 175.3 cm [facility] Body weight 2022-03-09 19:57:00 83.825 kg Universi [facility] BMI 2022-03-09 19:57:00 27.29 kg/m2 [facility] Oxygen saturation in 2022-03-09 19:57:00 97 /min [facility] Arterial blood by [facility] Pulse oximetry Branch Diastolic blood 2022-02-06 20:56:00 76 mm[Hg] Unive rsity of pressure [facility] Heart rate 2022-02-06 20:56:00 73 /min Universi [facility] Respiratory rate 2022-02-06 20:56:00 18 /min [place] [facility] [place] [facility] Body height 2022-02-06 20:56:00 175.3 cm [facility]i [facility] [place] [facility] Body weight 2022-02-06 20:56:00 82.101 kg Universi ty [facility] [place] [facility] BMI 2022-02-06 20:56:00 26.73 kg/m2 [facility]i [facility] [place] [facility] Oxygen saturation in 2022-02-06 20:56:00 99 /min University of Arterial blood by [facility] Pulse oximetry Branch Systolic blood 2022-02-06 20:56:00 118 mm[Hg] Univer sity of pressure [facility] [place] Systolic blood 2022-01-06 19:39:00 115 mm[Hg] Univer sity of pressure [facility] Branch Diastolic blood 2022-01-06 19:39:00 66 mm[Hg] Unive rsity of [facility] Heart rate 2022-01-06 19:39:00 71 /min Universi ty of [place] Medical [place] Body temperature 2022-01-06 19:39:00 36.89 Soraya Univ ersity of [facility] Body height 2022-01-06 19:39:00 175.3 cm Universi ty [facility] [place] [facility] [place] Body weight 2022-01-06 19:39:00 82.101 kg [facility]i [facility] [place] [facility] BMI 2022-01-06 19:39:00 26.73 kg/m2 [facility]i [facility] [place] [facility] Oxygen saturation in 2022-01-06 19:39:00 98 /min University of Arterial blood by [facility] Pulse oximetry Branch Procedures Procedure Date / Time Performed Performing Clinician Sour e CONSENT/REFUSAL FOR 2022-01-06 19:30:11 Doctor Unassigned, No Un [facility] DIAGNOSIS AND Name Medical Branch TREATMENT Encounters Start End Encounter Admission Attending Care Care Encounter Source Date/Time Date/Time Type Type Clinicians Facility Department ID 2022-11-27 2022-11-27 Outpatient Jennings_R_ VFP VFP [id number] [place] 00:00:00 00:00:00 [place] [id number] Family Practic e 2022-11-13 2022-11-13 Outpatient Jennings_R_ VFP VFP [id number] Village 00:00:00 00:00:00 [place] [id number] Family Practic e 2022-11-13 2022-11-13 Lester Perdomool VFP [place] - [id number] [place] 00:00:00 00:00:00 Kay Matias Ney brown MD: [facility]AMY_[address], [address], ([facility]) [place] [address] , Ph. 2022-11-12 2022-11-12 Outpatient Florencio_R_ VFP VFP [id number] [facility] 00:00:00 00:00:00 [place] [id number] Family Practic e 2022-10-16 2022-10-16 Telephone SuryaFormerly [facility] 1.2.840.114 [id number] Univers 00:00:00 00:00:00 Ghazala WRIGHT [id number] ity of [place] [phone] [address] 2022-06-17 2022-06-17 [facility] 1.2.840.114 [id number] Univers 00:00:00 00:00:00 Ilia ncyclo 350.1.13.10 it y of [place] 4.2.7.2.686 [place] CENTER - [phone] [facility] [place] [address] Branch 2022-06-16 2022-06-16 Outpatient Jerardo GRIGGS [facility] [id number] Univers 08:00:00 08:00:00 ILIA nelson [facility] 2022-04-06 2022-04-06 Outpatient LORENA MCDONALD [facility] [id number] Univers 10:00:00 10:00:00 LORENA EDMONDSON it y of [facility] [place] 2022-03-17 2022-03-17 Outpatient [facility] [id number] Univers 16:00:00 16:00:00 ILIA toy [facility] 2022-03-13 2022-03-13 Telephone [facility] 1.2.840.114 [id number] Univers 00:00:00 00:00:00 [facility] [id number] it y of [place] 4.2.7.2.686 [place] CENTER - [phone] Med ical MDA 204 Branch 2022-03-11 2022-03-11 Telephone Bibiana [facility] [id number] Univers 00:00:00 00:00:00 Chetan WRIGHT [id number] 4.2.7.2.[place] [phone] Ne dical NAL 044 Branch [facility] 2022-03-10 2022-03-10 Telephone Surya, [facility] 1.2.840.114 [id number] Univers 00:00:00 00:00:00 Ognikki WRIGHT [address].13.[address] 4[place]2.7.2.[place] [id number] Ne dical NAL 044 Branch BUILDING 2022-03-10 2022-03-10 [facility]phone [email or web address] [id number] Univers 00:00:00 00:00:00 Chetan WRIGHT [id number] 4[place]2.7.2.[place] [id number] Ne dical NAL 044 Branch [facility] 2022-03-10 2022-03-10 Patient Doctor [facility] 1.2.840.114 [id number] Univers 00:00:00 00:00:00 Secure Msg Unassigned, HEALTH 350.1.13.10 ity of [place]2.[place] [id number] [facility] 084 Branch OFFICE BUILDING 2022-03-09 2022-03-09 Crew Member 2, Adc Lab [facility] 1.2.840.114 [id number] Univers 14:45:00 14:45:00 Visit Chetan Mccarty 350.1.13.10 ity of [facility] 4.2.7.2.[place] [phone] Ne dical NAL 353 Branch BUILDING 2022-03-09 2022-03-09 Outpatient R BIBIANA [facility] [id number] Univers 14:00:00 14:17:49 CHETAN ity of [facility] 2022-03-09 2022-03-09 Office [email or web address] 1.2.840.114 [id number] Univers 14:00:00 14:17:49 Visit Chetan WRIGHT 350.1.13.10 i ty of [facility] 4.2.7.2.[place] [id number] Ne isabellemd FLORIDALMA [address] [place] [address] 2022-02-09 2022-02-09 Telephone Surya [facility] 1.2.840.114 [id number] Univers 00:00:00 00:00:00 Ghazala WRIGHT 350.1.13.10 ity of [place]2.[place] [phone] Ne dical FLORIDALMA [address] [place] [address] 2022-02-06 2022-02-06 Crew Member Naya, [facility] Lab Main [facility] 1.2.8 40.114 [id number] Univers 17:15:00 17:30:00 Visit Ghazala Harris 350.1.13.1 0 ity of [facility] 4.2.7.2.[place] [phone] Ne devin HEDRICK 353 [facility] 2022-02-06 2022-02-06 Outpatient R GHAZALA HARRIS [facility] [id number] Univers 14:00:00 15:31:10 [facility] 2022-02-06 2022-02-06 Office [email or web address] 1.2.840.114 [id number] Univers 14:00:00 15:31:10 Visit Ghazala WRIGHT 350.1.13.10 ity of [facility] 4.2.7.2.686 [place] [phone] Ne diceverton HEDRICK [address] [place] [address] 2022-02-04 2022-02-04 Outpatient R GHAZALA HARRIS [facility] [id number] Univers 08:00:00 08:00:00 [facility] 2022-01-06 2022-01-06 Office Aung [facility] 1.2.840.114 [id number] Univers 13:15:00 13:45:00 Visit [facility] 350.1.13.10 it y of [place] 4.2.7.2.686 [place] as CENTER - [phone] [facility] 204 [place] 2022-01-06 2022-01-06 Outpatient R [facility] [id number] Univers 13:15:00 13:15:00 ILIA ity [facility] 2022-01-06 2022-01-06 Orders Doctor BOBBY 1.2.840.114 [id number] Univers 00:00:00 00:00:00 Only Unassigned, GRACE 350.1.13.10 ity of [place] [facility] 4.2.7.2.686 [place]iaz as [phone] [facility] 009 [place] 2020-10-06 2020-10-06 Patient Doctor BOBBY 1.2.840.114 [id number] Univers 00:00:00 00:00:00 Secure Msg Unassigned, GRACE 350.1.13.10 ity [place] [facility] 4.2.7.2.686 [place] as [id number] [facility] 019 [place] 2020-10-05 2020-10-05 Outpatient R [facility] [id number] Univers 19:00:00 19:00:00 JONATAN mcdaniely o f [facility] [place] 2020-09-08 2020-09-08 Outpatient R [facility] [id number] Univers 16:40:00 16:40:00 PEREZ ity [facility] 2019-10-04 2019-10-04 Patient Doctor BOBBY Hernández.2.840.114 [id number] Univers 00:00:00 00:00:00 Secure Msg Unassigned, GRACE 350.1.13.10 ity [place] [facility] 4.2.7.2.686 Riaz as [id number] [address] 2019-10-03 2019-10-03 Outpatient R [facility] [id number] Univers 15:20:00 15:20:00 ity [facility] 2019-09-12 2019-09-12 Outpatient R [facility] [id number] Univers 14:20:00 14:20:00 JOHN nelson of [facility] Results This patient has no known results.
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
[2022-12-16] MEDS ORDERED: hydrOXYzine HCL 25 MG TAB ONE (00:02)
[2022-12-16] MEDS ORDERED: SERTRALINE HCL 100 MG TAB ONE (00:07)
[2022-12-16 03:25] VITALS: BP 122/71; TEMP 98.1; O2SAT 100
== END 2022-12-16 00:09 | disposition home or self-care (01) ==
LOC: ER 22:49
DX: F32.A Depression, unspecified (principal); M25.571 Pain in right ankle and joints of right foot; V89.2XXA Person injured in unspecified motor-vehicle accident, traffic, initial encounter
CPT/HCPCS: 99283

== ENCOUNTER 2022-12-16 12:12 | Emergency (ER) | payer OTHER, SELFPAY ==
--- OUTSIDE RECORDS SUMMARY | 2022-12-16 12:22 | XMS REPORT | Continuity of Care Document ---
:2000 Author Organization [facility] t Address [address] [place] [address] [place] [id number] Care Team Providers Name Role Phone Pcp, Patient Does Not Have A Primary Care Physician +[id number] [id number] Attending Clinician Unavailable Ghazala Harris NP Attending Clinician Ilia Griggs MD Attending Clinician ILIA GRIGGS Attending Clinician Unavailable LORENA EDMONDSON Attending Clinician Unavailable LORENA EDMONDSON Attending Clinician Unavailable Chetan Huber Attending Clinician Doctor Unassigned, [place] Attending Clinician Unavailable 2, Adc Lab Attending [...] rs active active ity of problems problems [facility] Allergies, Adverse Reactions, Alerts Allergy Allergy Status Severity Reaction(s) Onset Inactive Treating Comm ents Source Name Type Date Date Clinician NO KNOWN Drug Active Univers ALLERGIE Class ity of S [facility] Social History Social Habit Start Date Stop Date Quantity Comments Source Gender identity Universit y of [facility] Sexual orientation Univer sity of [facility] History of tobacco Current smoker Un iversity of use [facility] Exposure to 2022 2022-03-09 Not sure University SARS-CoV-2 (event) 00:00:00 13:34:00 [facility] History of Social 2022-02-06 2022-02-06 Univers ity of function 00:00:00 00:00:00 [facility] Tobacco use and 2020-09-08 2020-09-08 Smokeless Universit y of exposure 00:00:00 00:00:00 tobacco non-user [facility] dical Union Tobacco Comment 2020-09-08 2020-09-08 vape Universit y of 00:00:00 00:00:00 [facility] Sex Assigned At [birth year] Universit y of 00:00:00 00:00:00 [facility] Smoking Status Start Date Stop Date Source Tobacco smoking University [facility] xa consumption unknown Medical Bran ch Ex-smoker 2020-09-08 00:00:00 2020-09-08 [facility] [place] 00:00:00 [facility] Medications Ordered Filled Start Stop Current Ordering Indication Dosage Frequency Signature Comments Components Source Medication Medication Date Date Medication? Clinician (SIG) Name Name metroNIDAZO 2021-03- No [id number] 500mg Take 1 Univers LE (FLAGYL) 04-12 tablet by it y of 500 mg 00:00: 05:59 mouth [place] tablet 00 :00 every 12 Medical (twelve) Branch hours for 3 days. metroNIDAZO 2021-03- No [id number] 500mg Take 1 Univers LE (FLAGYL) 04-12 tablet by it y of 500 mg 00:00: 05:59 mouth [place] tablet 00 :00 every 12 Medical (twelve) Branch hours for 3 days. metroNIDAZO 2021-03- No [id number] 500mg Take 1 Univers LE (FLAGYL) 04-12 tablet by it y of 500 mg 00:00: 05:59 mouth [place] tablet 00 :00 every 12 Medical (twelve) Branch hours for 3 days. amoxicillin 2021-03- No [id number] 1{tbl} Take 1 Univers -clavulanat 04-09 tablet by it y of e [id number] 00:00: 00:00 mouth in [place] mg per 00 :00 the Medical tablet morning Branch and 1 tablet in the evening. amoxicillin 2021-03- No [id number] 1{tbl} Take 1 Univers -clavulanat 04-09 tablet [...] DAY Medical WITH MEALS Branch albuterol Yes [id number] 2{puff} Inhale 2 Univers 90 8-07 Puffs ity of mcg/actuati 00:00: every 6 [place] on inhaler 00 (six) Medical hours as Branch needed for Wheezing, Shortness of Breath or Chest tightness. albuterol Yes [id number] 2{puff} Inhale 2 Univers 90 8-07 Puffs ity of mcg/actuati 00:00: every 6 [place] on inhaler 00 (six) Medical hours as Branch needed for Wheezing, Shortness of Breath or Chest tightness. albuterol Yes [id number] 2{puff} Inhale 2 Univers 90 8-07 Puffs ity of mcg/actuati 00:00: every 6 [place] on inhaler 00 (six) Medical hours as Branch needed for Wheezing, Shortness of Breath or Chest tightness. albuterol Yes [id number] 2{puff} Inhale 2 [facility] [place] 90 8-07 Puffs ity of mcg/actuati 00:00: every 6 [place] on inhaler 00 (six) Medical hours as Branch needed for Wheezing, Shortness of Breath or Chest tightness. albuterol 2021- No [id number] 2{puff} Inhale 2 [facility] [place] 90 8-07 12-09 Puffs ity of mcg/actuati 00:00: 00:00 [place] 6 [place] inhaler 00 :00 (six) Medical hours as Branch needed for Wheezing, Shortness of Breath or Chest tightness. albuterol 2021- No [id number] 2{puff} Inhale 2 [place] [address] 8-07 12-09 Puffs ity of mcg/actuati 00:00: 00:00 every 6 [place] inhaler 00 :00 (six) Medical hours as Branch needed for Wheezing, Shortness of Breath or Chest tightness. albuterol 2021- No [id number] 2{puff} Inhale 2 [place] [address] 8-07 12-09 Puffs ity of mcg/actuati 00:00: [...] Comments Source Height 2022-11-13 00:00:00 69 [in_i] [facility] BP Systolic 2022-11-13 00:00:00 121 mm[Hg] [facility] Body Weight 2022-11-13 00:00:00 174 [lb_av] [facility] BMI (Body Mass 2022-11-13 00:00:00 25.7 kg/m2 [facility]) Practice BP Diastolic 2022-11-13 00:00:00 69 mm[Hg] [facility] Systolic blood 2022-03-09 19:57:00 117 mm[Hg] Univer sity of [facility] Diastolic blood 2022-03-09 19:57:00 76 mm[Hg] Unive rsity of [facility] Heart rate 2022-03-09 19:57:00 65 /min Universi [facility] Body temperature 2022-03-09 19:57:00 36.67 Soraya [facility] Respiratory rate 2022-03-09 19:57:00 18 /min [facility] Body height 2022-03-09 19:57:00 175.3 cm [facility] Body weight 2022-03-09 19:57:00 83.825 kg Universi [facility] BMI 2022-03-09 19:57:00 27.29 kg/m2 [facility] Oxygen saturation in 2022-03-09 19:57:00 97 /min [facility] Arterial blood by [facility] Pulse oximetry Branch Diastolic blood 2022-02-06 20:56:00 76 mm[Hg] Unive rsity of pressure [facility] Heart rate 2022-02-06 20:56:00 73 /min Universi [facility] Respiratory rate 2022-02-06 20:56:00 18 /min [facility] Body height 2022-02-06 20:56:00 175.3 cm [facility] [place] [facility] Body weight 2022-02-06 20:56:00 82.101 kg [facility] [place] [facility] BMI 2022-02-06 20:56:00 26.73 kg/m2 [facility] [place] [facility] Oxygen saturation in 2022-02-06 20:56:00 99 /min University of Arterial blood by [facility] Pulse oximetry Branch Systolic blood 2022-02-06 20:56:00 118 mm[Hg] Univer sity of pressure [facility] Systolic blood 2022-01-06 19:39:00 115 mm[Hg] Univer sity of pressure [facility] Branch Diastolic blood 2022-01-06 19:39:00 66 mm[Hg] Unive rsity of [facility] Heart rate 2022-01-06 19:39:00 71 /min [facility] [place] [facility] Body temperature 2022-01-06 19:39:00 36.89 Soraya Univ ersity of [facility] Body height 2022-01-06 19:39:00 175.3 cm [facility] [place] [facility] Body weight 2022-01-06 19:39:00 82.101 kg [facility] [place] [facility] BMI 2022-01-06 19:39:00 26.73 kg/m2 [facility] [place] [facility] Oxygen saturation in 2022-01-06 19:39:00 98 /min University of Arterial blood by [facility] Pulse oximetry Branch Procedures Procedure Date / Time Performed Performing Clinician Sour e CONSENT/REFUSAL FOR 2022-01-06 19:30:11 Doctor Unassigned, No Un [facility] DIAGNOSIS AND Name Medical Branch TREATMENT Encounters Start End Encounter Admission Attending Care Care Encounter Source Date/Time Date/Time Type Type Clinicians Facility Department ID 2022-11-27 2022-11-27 Outpatient Jennings_R_ VFP VFP [id number] Village 00:00:00 00:00:00 [place] [id number] Family Practic e 2022-11-13 2022-11-13 Outpatient Jennings_R_ VFP VFP [id number] Village 00:00:00 00:00:00 [place] [id number] Family Practic e 2022-11-13 2022-11-13 Lester Perdomool VFP [place] - [id number] Village 00:00:00 00:00:00 Kay Matias Ney brown MD: 102 [facility]_AMY_[address], [place] [address], ([facility]) [place] [address] , Ph. 2022-11-12 2022-11-12 Outpatient Florencio_R_ VFP VFP [id number] [facility] 00:00:00 00:00:00 [place] [id number] Family Practic e 2022-10-16 2022-10-16 Telephone SuryaCount includes the [facility] [id number] Univers 00:00:00 00:00:00 Ghazala WRIGHT [id number] ity of [place] [phone] [address] 2022-06-17 2022-06-17 [facility] 1.2.840.114 [id number] Univers 00:00:00 00:00:00 Ilia Penboost [id number] it y of [place] 4.2.7.2.686 [place] as CENTER - [phone] [facility] [place] [address] Branch 2022-06-16 2022-06-16 Outpatient Jerardo GRIGGS [facility] [id number] Univers 08:00:00 08:00:00 ILIA nelson [facility] 2022-04-06 2022-04-06 Outpatient LORENA MCDONALD [facility] [id number] Univers 10:00:00 10:00:00 LORENA EDMONDSON it y of [facility] 2022-03-17 2022-03-17 [facility] [id number] Univers 16:00:00 16:00:00 ILIA toy [facility] 2022-03-13 2022-03-13 Telephone [facility] [id number] Univers 00:00:00 00:00:00 [facility] [id number] it y of [place] 4.2.7.2.686 [place] CENTER - [phone] Med ical MDA 204 Branch 2022-03-11 2022-03-11 Telephone Bibiana [facility] [id number] Univers 00:00:00 00:00:00 Chetan WRIGHT 350.1.13.10 i ty of [employer] [place] [phone] Il dical NAL 044 Branch [facility] 2022-03-10 2022-03-10 Telephone Surya, [facility] 1.2.840.114 [id number] Univers 00:00:00 00:00:00 Ognikki WRIGHT 350.1.13.10 ity of [place] [place] [phone] Il dical NAL 044 Branch BUILDING 2022-03-10 2022-03-10 [facility]phone [facility] [id number] Univers 00:00:00 00:00:00 Chetan WRIGHT 350.1.13.10 i ty of [place] [place] [id number] Il dical NAL 044 Branch [facility] 2022-03-10 2022-03-10 Patient Doctor [facility] 1.2.840.114 [id number] Univers 00:00:00 00:00:00 Secure Msg Unassigned, HEALTH 350.1.13.10 ity of [place] [phone] [facility] 084 Branch OFFICE BUILDING 2022-03-09 2022-03-09 Prop And Effects Designer 2, Adc Lab [facility] 1.2.840.114 [id number] Univers 14:45:00 14:45:00 Visit Chetan Mccarty 350.1.13.10 [facility] 4.[place] [phone] Il dical NAL 353 Branch BUILDING 2022-03-09 2022-03-09 Outpatient R BIBIANA [facility] [id number] Univers 14:00:00 14:17:49 CHETAN ity of [facility] 2022-03-09 2022-03-09 Office [facility] 1.2.840.114 [id number] Univers 14:00:00 14:17:49 Visit Chetan WRIGHT 350.1.13.10 i ty [facility] 4[place] [id number] Il isabellenm FLORIDALMA [address] [place] [address] 2022-02-09 2022-02-09 Telephone Surya [facility] 1.2.840.114 [id number] Univers 00:00:00 00:00:00 Ghazala WRIGHT 350.1.13.10 ity of [place] [phone] Il dical FLORIDALMA [address] [place] [address] 2022-02-06 2022-02-06 Prop And Effects Designer Naya, [facility] Lab Main [facility] 1.2.8 40.114 [id number] Univers 17:15:00 17:30:00 Visit Ghazala Harris 350.1.13.1 0 ity [facility] 4.[place] [phone] Il devin HEDRICK 353 [facility] 2022-02-06 2022-02-06 Outpatient R GHAZALA HARRIS [facility] [id number] Univers 14:00:00 15:31:10 [facility]22-[facility]-06 2022-02-06 Office [facility] 1.2.840.114 [id number] Univers 14:00:00 15:31:10 Visit Ghazala WRIGHT 350.1.13.10 ity [facility] 4.[place] [phone] Il diceverton HEDRICK [address] [place] [address] 2022-02-04 2022-02-04 Outpatient R GHAZALA HARRIS [facility] [id number] Univers 08:00:00 08:00:00 [facility] 2022-01-06 2022-01-06 Office Aung [facility] 1.2.840.114 [id number] Univers 13:15:00 13:45:00 Visit [facility] 350.1.13.10 it y of [place] 4.2.7.2.686 [place] as CENTER - [phone] [facility] 204 [place] 2022-01-06 2022-01-06 Outpatient R [facility] [id number] Univers 13:15:00 13:15:00 ILIA ity [facility] 2022-01-06 2022-01-06 Orders Doctor BOBBY 1.2.840.114 [id number] Univers 00:00:00 00:00:00 Only Unassigned, GRACE 350.1.13.[address] [place] [facility] 4.2.7.2.686 Riaz as [phone] [facility] 009 [place] 2020-10-06 2020-10-06 Patient Doctor BOBBY 1.2.840.114 [id number] Univers 00:00:00 00:00:00 Secure Msg Unassigned, GRACE 350.1.13.[address] [facility] 4.2.7.2.686 Riaz as [phone] [facility] 019 [place] 2020-10-05 2020-10-05 Outpatient R [facility] [id number] Univers 19:00:00 19:00:00 JONATAN mcdaniely o f [facility] 2020-09-08 2020-09-08 Outpatient R [facility] [id number] Univers 16:40:00 16:40:00 PEREZ ity [facility] 2019-10-04 2019-10-04 Patient Doctor BOBBY Hernández.2.840.114 [id number] Univers 00:00:00 00:00:00 Secure Msg Unassigned, GRACE 350.1.13.[address] [facility] 4.2.7.2.686 [place]iaz as [phone] [address] 2019-10-03 2019-10-03 Outpatient R [facility] [id number] Univers 15:20:00 15:20:00 ity [facility] 2019-09-12 2019-09-12 Outpatient R [facility] [id number] Univers 14:20:00 14:20:00 JOHN nelson of [facility] Results This patient has no known results.
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
[2022-12-16 14:44] VITALS: BP 131/81; TEMP 98; O2SAT 99
== END 2022-12-16 14:06 | disposition home or self-care (01) ==
LOC: ER 12:12
DX: R51.9 Headache, unspecified (principal); F07.81 Postconcussional syndrome; S90.01XA Contusion of right ankle, initial encounter; F31.9 Bipolar disorder, unspecified
CPT/HCPCS: 70450